=== PATIENT | male | born 1985 | race Caucasian/White ===

== ENCOUNTER 2018-08-17 15:16 | Emergency (ER) | payer MEDICAID ==
[~2018-08-17] VITALS: Ht 198.1 cm; Wt 95.3 kg
--- NOTE | 2018-08-17 15:28 | NUR ---
PT IS IN ROOM #1A. DR RAMSAY EVALUATED THE PT.
[2018-08-17 15:44] LABS: BASOPHILS # (AUTO) 0.1 K/uL (0.0-8.0); BASOPHILS % (AUTO) 0.7 % (0.0-2.0); EOSINOPHILS # (AUTO) 0.4 K/uL (0.0-0.7); EOSINOPHILS % (AUTO) 5.1 % (0.0-7.0); HEMATOCRIT 48.9 % (36.7-47.1); HEMOGLOBIN 16.7 g/dL (12.5-16.3); LYMPHOCYTES # (AUTO) 3.5 K/uL (20.0-40.0); LYMPHOCYTES % (AUTO) 41.6 % (20.5-51.5); MEAN CORPUSCULAR HEMOGLOBIN 29.4 uug (23.8-33.4); MEAN CORPUSCULAR HGB CONC 34 g/dL (32.5-36.3); MEAN CORPUSCULAR VOLUME 86.2 fL (73.0-96.2); MONOCYTES # (AUTO) 0.7 K/uL (2.0-10.0); MONOCYTES % (AUTO) 8.3 % (0.0-11.0); NEUTROPHILS # (AUTO) 3.7 K/uL (1.8-8.9); NEUTROPHILS % (AUTO) 44.3 % (38.5-71.5); PLATELET COUNT (AUTO) 226 K/uL (152-348); RED BLOOD CELL COUNT(AUTO) 5.67 MIL/uL (4.06-5.63); WHITE BLOOD COUNT (AUTO) 8.3 K/uL (3.6-10.2)
[2018-08-17 16:09] LABS: BILIRUBIN,DIRECT 0.1 mg/dL (0.0-0.2); BILIRUBIN,TOTAL 0.3 mg/dL (0.2-1.0); TOTAL PROTEIN, SERUM 7.5 g/dL (6.4-8.2)
--- NOTE | 2018-08-17 18:43 | NUR ---
PT DECIDED TO LEAVE HOSPITAL AMA. DR RAMSAY EXPLAINED ALL RISKS OF LEAVING HOSPITAL AMA TO THE PT. PT WERBALIZED FULL UNDERSTANDING. PT SIGNED AMA FORM AND LEFT HOSPITAL BY TAXI.
[2018-08-17 18:49] VITALS: BP 129/78
== END 2018-08-17 18:50 | disposition left against medical advice (07) ==
LOC: ER 15:16
DX: R07.89 Other chest pain (principal)
CPT/HCPCS: 36415; 70030-TC; 71045; 85025; 85730; 93005; A4663

== ENCOUNTER 2019-01-31 23:41 | Emergency (ER) | payer MEDICAID ==
[~2019-01-31] VITALS: Ht 198.1 cm; Wt 111.1 kg
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
[2019-02-01] MEDS ORDERED: IBUPROFEN 800 MG TABLET ONE (00:14)
[2019-02-01] MEDS ORDERED: IBUPROFEN 800 MG TABLET PO ONE (00:15)
--- NOTE | 2019-02-01 00:16 | NUR ---
Patient transported to CT in stable condition.
--- NOTE | 2019-02-01 00:30 | NUR ---
Patient back in room from CT
--- NOTE | 2019-02-01 01:15 | NUR ---
Patient discharged to home in stable conditon. Written and verbal after care instructions given. Patient verbalizes understanding of instructions. Patient ambulated with stable gait.
[2019-02-01 01:16] VITALS: BP 132/80
== END 2019-02-01 01:16 | disposition home or self-care (01) ==
LOC: ER 23:46
DX: S16.1XXA Strain of muscle, fascia and tendon at neck level, initial encounter (principal); S39.91XA Unspecified injury of abdomen, initial encounter; R07.81 Pleurodynia; V49.49XA Driver injured in collision with other motor vehicles in traffic accident, initial encounter; Y93.89 Activity, other specified; Y92.410 Unspecified street and highway as the place of occurrence of the external cause; Y99.8 Other external cause status
CPT/HCPCS: 71250; 72125; A4663

== ENCOUNTER 2023-03-24 19:56 | Emergency (ER) | payer MEDICAID ==
[~2023-03-24] VITALS: Ht 198.1 cm; Wt 108.9 kg
[2023-03-24] MEDS ORDERED: IBUP-1955 PO (21:16)
[2023-03-24 21:29] VITALS: BP 132/77; TEMP 97.8; O2SAT 98
== END 2023-03-24 21:29 | disposition home or self-care (01) ==
LOC: ER 19:58
DX: S63.501A Unspecified sprain of right wrist, initial encounter (principal); Z79.1 Long term (current) use of non-steroidal anti-inflammatories (NSAID); V49.9XXA Car occupant (driver) (passenger) injured in unspecified traffic accident, initial encounter; Y93.89 Activity, other specified; Y92.89 Other specified places as the place of occurrence of the external cause; Y99.8 Other external cause status
CPT/HCPCS: 73110; 73130; A4663